=== PATIENT | female | born 1930 | race Caucasian/White ===

== ENCOUNTER 2019-06-17 11:25 | Inpatient (IN) | payer OTHER ==
[~2019-06-17] VITALS: Ht 167.6 cm; Wt 75.0 kg
[2019-06-17 11:29] VITALS: BP 137/75
[2019-06-17] MEDS ORDERED: IMDUR 30 MG TAB30 M1 PO (11:42)
[2019-06-17] MEDS ORDERED: CARVEDILOL12.5 MG PO (11:42)
[2019-06-17] MEDS ORDERED: KLOR-CON 1010 MEQ PO (11:42)
[2019-06-17] MEDS ORDERED: LIPITOR80 MG PO (11:43)
[2019-06-17] MEDS ORDERED: ANASTROZOLE1 MG PO (11:43)
[2019-06-17] MEDS ORDERED: ZANTAC 150MG T150 MG PO (11:43)
[2019-06-17] MEDS ORDERED: OXYBUTYNIN 5 MG5 M2 PO (11:43)
[2019-06-17] MEDS ORDERED: TRAZODONE HCL100 MG PO (11:44)
[2019-06-17] MEDS ORDERED: FLEXERIL PO (11:44)
[2019-06-17] MEDS ORDERED: OMEGA-3 FLAXS1000 MG PO (11:45)
[2019-06-17] MEDS ORDERED: GLUCOSAMINE CH1 EAC2 PO (11:45)
[2019-06-17] MEDS ORDERED: WOMEN'S 50 PLU1 EACH PO (11:45)
[2019-06-17] MEDS ORDERED: CLOPIDOGREL75 MG PO (11:46)
[2019-06-17 11:53] LABS: ABSOLUTE EOSINOPHILS 0.1 thou/uL (0.0-0.7); ABSOLUTE LYMPHOCYTES 0.7 thou/uL (0.8-5.3); ABSOLUTE MONOCYTES 0.6 thou/uL (0.0-1.2); ABSOLUTE NEUTROPHILS 4.4 thou/uL (1.6-8.1); BASOPHILS 0.4 %; EOSINOPHILS 1.3 %; HEMATOCRIT 30.7 % (37.0-47.0); HEMOGLOBIN 9.6 gm/dL (12.0-15.0); LYMPHOCYTES 11.8 %; MCH 24.1 pg (26.0-34.0); MCHC 31.3 g/dL (28.0-37.0); MONOCYTES 11.1 %; MPV 7.6 fl. (7.2-11.1); NUCLEATED RBCS 0 /100WBC; PLATELET COUNT* 262 thou/uL (150-400); POLYS 75.4 %; RBC 3.99 mil/uL (4.20-5.00); RDW-CV 18.2 % (10.5-14.5); WBC 5.8 thou/uL (4.0-11.0)
[2019-06-17 12:02] LABS: ANION GAP 11 mmol/L (7-16); BUN 21 mg/dL (7-18); CALCIUM 9.2 mg/dL (8.5-10.1); CHLORIDE 105 mmol/L (98-107); CO2 26 mmol/L (21-32); CREATININE 1.2 mg/dL (0.6-1.3); GLUCOSE 100 mg/dL (70-99); POTASSIUM 3.5 mmol/L (3.5-5.1); SODIUM 142 mmol/L (136-145)
[2019-06-17 12:08] LABS: APTT 27.3 Seconds (25.0-31.3); INR 1.2; PROTIME 11.9 Seconds (9.20-11.50)
[2019-06-17 12:13] LABS: ALBUMIN 3.7 g/dL (3.4-5.0); ALKALINE PHOSPHATASE 58 U/L (46-116); NT-PRO BRAIN NAT PEPTIDE 2047 pg/mL (<300); SGOT 17 U/L (15-37); SGPT 28 U/L (30-65); TOTAL BILIRUBIN 0.7 mg/dL (<0.1-1.0); TROPONIN-I LEVEL <0.06 ng/mL (<0.06)
--- NOTE | 2019-06-17 14:38 | NUR ---
SILVANA AMATO )NOTIFIED UPON PT RETURN. PT CONNECTED TO O2 AND MONITOR
[2019-06-17 16:00] VITALS: BP 138/67
[2019-06-17 16:01] VITALS: BP 122/59
[2019-06-17 16:49] LABS: % SATURATION 6 % (20-39); IRON 21 ug/dL (50-175)
--- NOTE | 2019-06-17 17:25 | NUR ---
PT ADMITTED TO TELEMETRY ROOM 233 WITH AN ADMITTING DIAGNOSIS OF SOA, CHEST PRESSURE. PT LORENA PAIN AT THSI TIME. VSS. V PACED ON MONITOR. PT ALERT AND ORIENTED AND ABLE TO VOICE ALL NEEDS. ASSESSMENT COMPLETED CHARTED. HOURLY ROUNDING, FALL PRECAUTIONS IN PLACE FOR PT SAFETY. CLWR.
--- NOTE | 2019-06-17 17:40 | 2DMMODE ---
[place] [address] 2 D/M-MODE ECHOCARDIOGRAM Name: KOLTON MONSIVAIS Room: [address] IN [facility]#: [id number] Admission: 06/17/19 Attend Phys: Tarik Lopez, Discharge: Date of : 11/30/30 Date of Service: 06/17/19 1740 Report #: [id number] THIS REPORT FOR: //name// APPROVED REPORT Study performed: 06/17/2019 14:47:22 EXAM: Comprehensive 2D, Doppler, and color-flow Echocardiogram Patient Location: In-Patient Room #: er Status: routine BSA: 1.90 HR: 70 bpm BP: 137/75 mmHg Rhythm: NSR Other Information Study Quality: Good Indications Dyspnea 2D Dimensions IVSd: 15.74 (7-11mm) LVOT Diam: 20.11 (18-24mm) LVDd: 44.57 mm PWd: 15.46 (7-11mm) Ascending Ao: 31.30 (22-36mm) LVDs: 28.27 (25-40mm) Aortic Root: 30.11 mm Volumes Left Atrial Volume (Systole) LA ESV Index: 46.00 mL/m2 Aortic Valve AoV Peak Suhas.: 2.08 m/s AO Peak Gr.: 17.27 mmHg LVOT Max P.83 mmHg AO Mean Gr.: 8.39 mmHg LVOT Mean P.22 mmHg LVOT Max V: 1.10 m/s AO V2 VTI: 36.70 cm LVOT Mean V: 0.67 m/s YOANA (VTI): 1.83 cm2 LVOT V1 VTI: 21.14 cm Mitral Valve E/A Ratio: 2.84 MV Decel. Time: 224.51 ms MV E Max Suhas.: 1.22 m/[place] [address] 2 D/M-MODE ECHOCARDIOGRAM Name: KOLTON MONSIVAIS Room: [address] IN ..#: [id number] Admission: 06/17/19 Attend Phys: Tarik Lopez, Discharge: Date of : 11/30/30 Date of Service: 06/17/19 1740 Report #: [id number] PHT: 65.11 ms MVA (PHT): 3.38 cm2 TDI E/Lateral E': 8.71 Lateral E' Suhas.: 0.14 m/s Pulmonary Valve PV Peak Suhas.: 0.84 m/s PV Peak Gr.: 2.80 mmHg Tricuspid Valve RAP Estimate: 5.00 mmHg TR Peak Gr.: 23.82 mmHg RVSP: 28.00 mmHg PA Pressure: 28.00 mmHg Left Ventricle The left ventricle is normal size. There is normal LV segmental wall motion. Moderate concentric left ventricular hypertrophy. Left ventricular systolic function is normal. The left ventricular ejection fraction is within the normal range. LVEF is 55-60%. The left ventricular diastolic function is normal. Right Ventricle The right ventricle is normal size. The right ventricular systolic function is normal. Pacemaker lead is present in the right ventricle. Atria Left atrium is moderately dilated. Right atrium is dilated. Aortic Valve Aortic valve leaflets are mildly thickened. Trace aortic regurgitation. Mild aortic stenosis. Mitral Valve The mitral valve is normal in structure. Mild mitral regurgitation. No evidence of mitral valve stenosis. Tricuspid Valve The tricuspid valve is normal in structure. Mild tricuspid regurgitation. estimated pa pressure 36 mm Hg Pulmonic Valve The pulmonary valve is normal in structure. Trace pulmonic regurgitation[place] [address] 2 D/M-MODE ECHOCARDIOGRAM Name: KOLTON MONSIVAIS Room: [address] IN [facility]#: [id number] Admission: 06/17/19 Attend Phys: Tarik Lopez, Discharge: Date of : 11/30/30 Date of Service: 06/17/19 1740 Report #: [id number] The aortic root is normal in size. IVC is normal in size and collapses >50% with inspiration. Pericardium There is no pericardial effusion. <Conclusion> Moderate concentric left ventricular hypertrophy. LVEF is 55-60%. Left atrium is moderately dilated. Mild aortic stenosis. Mild mitral regurgitation. Mild tricuspid regurgitation. estimated pa pressure 36 mm Hg <ELECTRONICALLY SIGNED> By: Rupesh Ba MD, [facility] 06/17/191739 39 39 Rupesh Ba MD, FAC /INF
[2019-06-17 20:19] VITALS: BP 106/54
[2019-06-18] VITALS: BP 114/63
[2019-06-18 04:00] VITALS: BP 108/55
[2019-06-18 05:24] LABS: CALCIUM 9.4 mg/dL (8.5-10.1); CREATININE 1.2 mg/dL (0.6-1.3); POTASSIUM 3.6 mmol/L (3.5-5.1)
--- NOTE | 2019-06-18 05:41 | NUR ---
PT IS ABLE TO COMMUNICATE HER NEEDS TO STAFF EFFECTIVELY. SHE HAS DENIED THE NEED FOR PAIN MEDICATION UP TO THIS TIME.
[2019-06-18 08:00] VITALS: BP 123/67
[2019-06-18 12:00] VITALS: BP 95/52
--- NOTE | 2019-06-18 15:41 | NUR ---
ASSUMED PT CARE AT 0800, AOX4, SBA, O2 SAT 90'S 2L NC. PT V PACED ON TELE MONITOR. PT HAVING SOB WITH ACTIVITY. HR GOES UP WITH EXERTION. EDEMA NOTED ON BILATERAL LOWER EXTREMITY. PT ON LASIX. VSS, AM ASSESSMENT CHARTED. MEDS GIVEN PER MAR. HOURLY ROUNDING. WILL CONTINUE TO MONITOR.
[2019-06-18 16:00] VITALS: BP 108/53
--- NOTE | 2019-06-18 16:22 | NUR ---
SW met with pt to complete initial assessment, introduce self, and SW role. Pt alert, oriented, pleasant, talkative. Pt lives at home with her son and dtr in law. Pt says pt has what pt needs at home already and has been able to perform ADLs and some IADLs but not as much since February and since chemo treatments. SW discussed AD information as there was a consult placed for AD and pt said she has AD/DPOA but just did not bring the copy to the hospital yet. Pt has hx of HH services and pt not sure if she will need HH at dc but said she would be open to HH at dc if recommended. Pt does not have oxygen at home and says that she feels better but still feels out of breath when walking. Pt has RW at home. GABRIEL/VINCENT to continue to follow to assist with safe dc planning.
[2019-06-18 20:20] VITALS: BP 107/55
[2019-06-19] VITALS: BP 109/56
[2019-06-19 04:00] VITALS: BP 103/52
[2019-06-19 05:17] LABS: ANION GAP 12 mmol/L (7-16); BUN 22 mg/dL (7-18); CALCIUM 9.2 mg/dL (8.5-10.1); CHLORIDE 104 mmol/L (98-107); CO2 27 mmol/L (21-32); CREATININE 1.2 mg/dL (0.6-1.3); GLUCOSE 96 mg/dL (70-99); MAGNESIUM 1.9 mg/dL (1.8-2.4); NT-PRO BRAIN NAT PEPTIDE 1361 pg/mL (<300); POTASSIUM 3.6 mmol/L (3.5-5.1); SODIUM 143 mmol/L (136-145); TROPONIN-I LEVEL <0.06 ng/mL (<0.06)
--- NOTE | 2019-06-19 06:28 | NUR ---
PT SLEPT MOST OF SHIFT. ASSESSMENT DOCUMENTED. MEDS GIVEN PER E-MAR. IV PATENT. NO REPORTS OF PAIN. PT UP SBA TO BATHROOM. TELE MONITOR READING PACED. WILL CONTINUE WITH PLAN OF CARE.
[2019-06-19 08:00] VITALS: BP 118/53
[2019-06-19 11:41] VITALS: BP 109/54
--- NOTE | 2019-06-19 12:22 | NUR ---
ASSUMED PT CARE AT 0800, AOX4, UP SBA, O2 SAT 90'S 1L NC. PT STATE SHE FEELS BETTER AND STRONGER. DENIES PAIN. SOB, HR GOES UP WITH ACTIVITY. EDEMA NOTED ON BILATERAL LOWER EXTREMITY, IMPROVING PER PT. PT ON LASIX. I&O, WEIGHT MONITOR. LAST BM 06/13/19, LAXATIVE GIVEN.PT FOR NM STESS TEST TOMORROW, NPO MIDNIGHT. AM ASSESSMENT CHARTED. MEDS GIVEN PER JAN. CALL LIGHT WITHIN REACH. WILL CONTINUE TO MONITOR.
[2019-06-19 16:30] VITALS: BP 116/60
[2019-06-19 19:25] VITALS: BP 114/60
[2019-06-20] VITALS: BP 122/66
[2019-06-20 04:00] VITALS: BP 116/62
[2019-06-20 05:28] LABS: CALCIUM 9.3 mg/dL (8.5-10.1); CREATININE 1.3 mg/dL (0.6-1.3)
--- NOTE | 2019-06-20 05:49 | NUR ---
PT SLEPT MOST OF SHIFT. ASSESSMENT DOCUMENTED. MEDS GIVEN PER -JAN. IV PATENT. NO REPORTS OF PAIN OR NAUSEA. PT REMAINED NPO AFTER MIDNIGHT. WILL CONTINUE WITH PLAN OF CARE.
[2019-06-20 08:00] VITALS: BP 110/82
[2019-06-20] MEDS ORDERED: B12INJ IM (10:01)
[2019-06-20] MEDS ORDERED: CARVEDILOL3.125 MG PO (10:01)
[2019-06-20] MEDS ORDERED: IRON325 PO (10:01)
[2019-06-20] MEDS ORDERED: LASIX 40 MG TAB40 M2 PO (10:01)
[2019-06-20] MEDS ORDERED: ELIQUIS5 MG PO (10:01)
--- NOTE | 2019-06-20 10:40 | NUR ---
Nutrition: Consult received. Pt confused about her conflicting diets. Pt stated that she had been on a low fiber diet since bowel surgery in March. She has had normal BMs since then, no bowel pain/discomfort, per pt. She has now been educated to start a heart healthy, which she is knowledgeable about, but knows it conflicts with a low fiber diet. Since she is s/p bowel surgeries x 2+months and having no S/S, advised her to follow the Heart Healthy diet, slowly adding some fiber back in. Pt voiced understanding. She is currently NPO for procedure today. RD available if further needs arise. Low risk.
--- NOTE | 2019-06-20 12:53 | CON ---
[address] [address] CONSULTATION Name: KOLTON MONSIVAIS Room: [address] IN .R.#: [id number] Admission: 06/17/19 Attend Phys: Tarik Lopez MD Discharge: Date of : 11/30/30 Report #: [id number] THIS REPORT FOR: //name// CC: Tarik Clay MD DATE OF SERVICE: 06/17/2019 CARDIOLOGY CONSULTATION HISTORY OF PRESENT ILLNESS: The patient is an 88-year-old single white female, who I was asked to see in the hospital today because of shortness of breath. The patient has an extensive past medical history. She apparently presented in 02/2018 with chest pain. She was taken to [facility] and told she had a heart attack. She had 5 coronary stents placed. She was noted to be bradycardic and prior to her discharge, she had a permanent [employer] pacemaker inserted. In March of this year, she underwent repeat colonoscopy after removal of previous colon cancer in 1991. She is found to have recurrent colon cancer and she then underwent resection in March of this year at [facility] in [place] [facility]. For about a week, she was in the hospital. She was discharged to rehabilitation. Apparently, developed an ileus and had to be readmitted. She was sent back to rehab and has now been home for about a month. She apparently has a history of a pulmonary nodule. Recently, she was sent by her primary care doctor to Radiology for a chest x-ray for followup of the lung nodule. She apparently was found to have small pleural effusions. She was referred to my nurse practitioner today. Her underlying rhythm is noted to be in atrial fibrillation. She was sent to the Emergency Room for further cardiac evaluation. The patient recently has been more short of breath; however, she denies any orthopnea or PND. She has had a lot of swelling of her ankles. She notes some leg pain. She has had no palpitations or syncope. She denied any bleeding problems. CURRENT MEDICATIONS: Include carvedilol twice a day, Imdur 30 mg a day, atorvastatin 80 mg a day. She was off her aspirin and Plavix for her colon surgery in March, but recently was started back on Plavix. She takes ranitidine, oxybutynin, and omeprazole. ALLERGIES: SHE HAS INTOLERANCE TO BACTRIM AND PENICILLIN. FAMILY HISTORY: Her son had coronary artery bypass surgery. SOCIAL HISTORY: She does have a son in [place], [place]. Uses a walker. Quit smoking years ago[place] [address] CONSULTATION Name: KOLTON MONSIVAIS Room: [address] IN ..#: [id number] Admission: 06/17/19 Attend Phys: Tarik Lopez MD Discharge: Date of : 11/30/30 Report #: [id number] REVIEW OF SYSTEMS: She has had no history of stroke. No history of asthma. She had breast cancer in the past, treated with lumpectomy and radiation therapy. She has had previous colon cancer, resected twice now. She has had a skin cancer removed. No chronic kidney disease. No liver disease. No chronic skin condition. PHYSICAL EXAMINATION: GENERAL: Elderly, frail-appearing female, lying in bed. She appeared in no acute distress. VITAL SIGNS: Showed a blood pressure of 130/70 and pulse is 70. HEENT: She is anicteric. Conjunctivae pink. Mucous members moist. NECK: Veins do not appear distended. CHEST: Reveal decreased breath sounds in the bases. CARDIAC: Regular rate and rhythm. No significant murmur. ABDOMEN: Soft. EXTREMITIES: Had pitting edema up to the knees. SKIN: Cool and dry. NEUROLOGIC: Nonfocal. ECG shows atrial fibrillation with a ventricular-paced rhythm. Her workup in the Emergency Room today; she had a venous duplex scan today that showed no evidence of DVT of the right lower extremity. Portable chest x-ray today showed cardiomegaly, pulmonary edema, and small effusions. Her lab work; sodium 142, potassium 3.5, creatinine 1.2. Troponin 0.06. BNP 2047. D-dimer 4.41. White blood cell count 5.8 and hemoglobin 9.6. IMPRESSION AND RECOMMENDATIONS: 1. Acute on chronic diastolic heart failure. Recommend IV Lasix. 2. Coronary artery disease, stents placed a year ago. I would continue Plavix. 3. Sick sinus syndrome. The patient is ventricular paced. 4. Atrial fibrillation. I would not recommend attempts at cardioversion. I would consider anticoagulation. 5. Recent removal of a colon cancer. 6. Previous history of breast cancer. 7. Anemia. The patient had a recent colon surgery. <ELECTRONICALLY SIGNED> By: Rupesh Ba MD, FACC 06/20/19 1253 1358 [id number] Ba MD, FAC /nt
--- NOTE | 2019-06-20 13:47 | NUR ---
THIS JEWELRY APPRAISER CALLED IN PRESCRIPTION FOR ELIQUIS, WRITTEN, TO PT[facility] IN [place] [phone]. COPAY FOR ELIQUIS IS $47/MONTH. GABRIEL MOLINA WILL INFORM PT.
--- NOTE | 2019-06-20 14:03 | NUR ---
cm informed pt of [employer] co-pay cost ($47) and provided her w/an Eliquis card for the first month.
[2019-06-20 15:05] VITALS: BP 126/64
--- NOTE | 2019-06-20 15:08 | NUR ---
pt informed effie she is current with [facility]. effie contacted [facility] inform of resumption of care. orders and med list faxed to [facility] @ [phone].
--- NOTE | 2019-06-20 16:48 | EKG ---
[place] [address] ELECTROCARDIOGRAM REPORT Name: KOLTON MONSIVAIS Room: [place] [address] ADM IN .R.#: [id number] Admission: 06/17/19 Attend Phys: Tarik Lopez MD Discharge: Date of : 11/30/30 Report #: [id number] THIS REPORT FOR: //name// [facility] ED Test Date: 2019-06-17 Test Time: 11:35:00 Pat Name: KOLTON MONSIVAIS Department: Room: [facility] Gender: F Executive Consultant: : 1930 Requested By: Griselda Michel Order Number: [id number] MD: Audi Lopez Measurements Intervals [place] Rate: 70 P: [place]: QRS: -78 QRSD: 151 T: 95 QT: 455 QTc: 491 Interpretive Statements Sinus rhythm with first degree AV block IVCD, consider atypical RBBB LVH with secondary repolarization abnormality Inferior infarct, age indeterminate, possible Anterolateral infarct, age indeterminate, possible No previous ECG available for comparison Electronically Signed On 06-20-2019 16:48:04 CDT by Audi Lopez [email or web address] <ELECTRONICALLY SIGNED> By: Audi Lopez MD, FACC 06/20/19 1648 1135 1135 Audi Lopez MD, [facility] /EPI
--- NOTE | 2019-06-20 16:49 | EKG ---
[place] [address] ELECTROCARDIOGRAM REPORT Name: KOLTON MONSIVAIS Room: [place] [address] ADM IN .R.#: [id number] Admission: 06/17/19 Attend Phys: Tarik Lopez MD Discharge: Date of : 11/30/30 Report #: [id number] THIS REPORT FOR: //name// [facility] ED Test Date: 2019-06-17 Test Time: 14:46:15 Pat Name: KOLTON MONSIVAIS Department: Room: [facility] Gender: F Accounting Instructor: : 1930 Requested By: Griselda Michel Order Number: [id number] MD: Audi Lopez Measurements Intervals [place] Rate: 70 P: 0 VT: 44 QRS: -81 QRSD: 147 T: 85 QT: 443 QTc: 479 Interpretive Statements Ventricular-paced complexes No further rhythm analysis attempted due to paced rhythm Right bundle branch block LVH with secondary repolarization abnormality Probable inferior infarct, acute Anterolateral infarct, age indeterminate Baseline wander in lead(s) V1 No previous ECG available for comparison Electronically Signed On 06-20-2019 16:49:12 CDT by Audi Lopez [email or web address] <ELECTRONICALLY SIGNED> By: Audi Lopez MD, FACC 06/20/19 1649 1446 1446 Audi Lopez MD, FAC /EPI
--- NOTE | 2019-06-20 18:03 | CARDNUC ---
[place] [address] CARDIAC NUCLEAR IMAGING REPORT Name: KOLTON MONSIVAIS Room: [facility] IN [facility]#: [id number] Admission: 06/17/19 Attend Phys: Tarik Lopez, Discharge: Date of : 11/30/30 Date of Service: 06/20/19 1803 Report #: [id number] THIS REPORT FOR: //name// APPROVED REPORT Imaging Protocol: Rest Tc-99m/Stress Tc-99m 1 day Study performed: 06/18/2019 09:26:00 Indication: Dyspnea Patient Location: In-Patient Room #: 233 Stress Tech: Alisha Valdez Stress Nurse: Ivonne Harding RN NM Tech:ARIANA Ervin Ht: 5 ft 6 in Wt: 173 lbs BSA: 1.88 m2 BMI: 27.91 Medical History Medical History: SOB, Atrial Fibrillation, CAD s/p [place], CAD s/p stent, Cardiomyopathy, Carotid artery disease, CHF, CKD, Fatigue, Former Smoker, Heart failure, HTN, Hyperlipidemia, ICD, RBBB, SOB, Weakness, SSS with PM. Medications: Carvedilol, Imdur, K-Dur, Lasix, Eliquis, Atorvastatin, Plavix. Allergies: Penicillins, Prochlorperazine, Sulfa meds, Trimethoprim, Cimetidine. Cardiac Risk Factors: Age, FHX of CAD, HTN, Hyperlipidemia, SOB, Past Smoker, Carotid Artery Disease, SSS with PM, RBBB. Previous Cardiac Procedures: ICD, PCI, Myocardial infarction, Afib. Pretest Chest Pain Characteristics: No chest pain Exercise History: Sedentary Physical Disabilities: Weakness, Fatigue, SOA, Unstable / Unstable gait. Meds Held (24 hrs): Carvedilol, Imdur. Resting Data Rest SPECT myocardial perfusion imaging was performed in supine position 30 minutes following the intravenous injection of 10.5 mCi of Tc-99m Sestamibi. Time of rest injection: 1020 Date: 06/20/2019 The images were gated to evaluate regional wall motion and calculate left ventricular ejection fraction. Administration Route: [place] [address] CARDIAC NUCLEAR IMAGING REPORT Name: KOLTON MONSIVAIS Room: [address] IN [facility]#: [id number] Admission: 06/17/19 Attend Phys: Tarik Lopez, Discharge: Date of : 11/30/30 Date of Service: 06/20/19 1803 Report #: [id number] Administration Site: Right Arm Pharmacologic Stress Pharmacologic stress test was performed by injecting Regadenoson 0.4 mg IV push over 10-15 seconds immediately followed by the intravenous injection of 34.2 mCi of Tc-99m Sestamibi. Time of stress injection: 1205 Date: 06/20/2019 Administration Route: IV Administration Site: Right Arm Gated Stress SPECT was performed 40 minutes after stress injection. The images were gated to evaluate regional wall motion and calculate left ventricular ejection fraction. Prone imaging was performed. Stress Test Details Stress Test: Pharmacologic stress testing performed using 0.4 mg of regadenoson per 5 mL given IV over 10 seconds. Reason for pharmacologic stress test: Unstable gait/unsteady, weak, SOA.. HR Max Heart Rate (APMHR): 132 bpm Resting HR: 78 bpm Target HR (85% APMHR): 112 bpm Max HR Achieved: 108 bpm % of APMHR: 81 Recovery HR: 86 bpm BP Resting BP: 141/81 mmHg Max BP: 126/59 mmHg Recovery BP: 122/59 mmHg ECG Resting ECG: Ventricular paced rhythm Stress ECG: Ventricular paced rhythm ST Change: None Arrhythmia: None Recovery ECG: Ventricular paced rhythm Recovery ST Change: None Recovery Arrhythmia: None Clinical Reason for Termination: Completed protocol Stress Symptoms: SOA Exercise duration: 00 min 00 sec Exercise capacity: 1.00 METs The patient tolerated Lexiscan infusion [place] [address] CARDIAC NUCLEAR IMAGING REPORT Name: KOLTON MONSIVAIS Room: [address] IN [facility]#: [id number] Admission: 06/17/19 Attend Phys: Tarik Lopez, Discharge: Date of : 11/30/30 Date of Service: 06/20/19 1803 Report #: [id number] symptoms. Nurse Comments 88 year old female inpatient presented with recent HX of increased SOA, fatigue. Patient tolerated Lexiscan in supine position r/t fatigue and tremors. Recovery unremarkable with PO caffeine, effective. Patient was escorted via wheelchair by staff to Nuclear Medicine for images. Patient was stable with no complaints at that time. Stress ECG Conclusion The baseline EKG shows ventricular paced rhythm. EKGs obtained during and post Lexiscan infusion showed ventricular paced rhythm. There were no stress-induced arrhythmias. Study Quality Study: Good Artifact: No artifact Study Data At rest, the left ventricular ejection fraction was 56%.. Post stress, the left ventricular ejection was 55%.. TID = 1.08. Perfusion Normal left ventricular perfusion. Wall Motion There is a septal wall motion abnormality noted possibly due to paced rhythm. Global LV systolic function is well-preserved. Nuclear Conclusion ECG Findings: non-diagnostic Clinical Findings: negative for ischemia Nuclear Findings: negative for ischemia Exercise Capacity: not assessed Left Ventricular Function: normal Risk Study: low Myocardial perfusion images show no defect to suggest infarct or ischemia. Gated study showed preserved left ventricular systolic function. This is a low risk study. <Conclusion> The baseline EKG shows ventricular paced rhythm[place] [address] CARDIAC NUCLEAR IMAGING REPORT Name: KOLTON MONSIVAIS Room: [address] IN [facility]#: [id number] Admission: 06/17/19 Attend Phys: Tarik Lopez, Discharge: Date of : 11/30/30 Date of Service: 06/20/19 1803 Report #: [id number] and post Lexiscan infusion showed ventricular paced rhythm. There were no stress-induced arrhythmias. <ELECTRONICALLY SIGNED> By: Audi Lopez MD, EDWIGE 06/20/19 1803 02 180 Audi Lopez MD, FACRian /INF
--- NOTE | 2019-06-20 18:19 | NUR ---
PT UP IN ROOM WITH SB ASSIST. REPORTS IMPROVEMENT OF BREATHING. DENIES CP. TOLERATING PO WELL. STRESS TEST THIS AFTERNOON-PENDING RESULTS
--- NOTE | 2019-06-20 18:22 | NUR ---
PLAN TO DC IF STRESS TEST NEGATIVE. AWAITING STRESS TEST RESULTS. SPOKE TO SON JUANIS WHO STATES HE IS UNABLE TO PICK PT UP UNTIL AFTER EH GETS OFF WORK AT 2200. PT STATES SHE WOULD LIKE TO STAY UNTIL THE AM BECAUSE SHE IS TIRED
[2019-06-20 20:45] VITALS: BP 102/50
[2019-06-21] VITALS: BP 117/57
[2019-06-21 04:00] VITALS: BP 115/67
--- NOTE | 2019-06-21 05:51 | NUR ---
PT ALERT AND ORIENTED. VSS ON RA. ASSESSMENT DOCUMENTED. MEDS GIVEN PER EMAR. STRICT I&O. PT DID NOT HAVE URINE OUTPUT THIS SHIFT. PT ONLY HAD ABOUT 10ML SIP OF WATER WITH MEDS. PT MOST OF SHIFT. CALL LIGHT WITHIN REACH. HOURLY ROUNDINGS MADE. POSSIBLE DC TODAY. WILL CONTINUE PLAN OF CARE.
[2019-06-21 08:00] VITALS: BP 123/58
[2019-06-21 09:05] VITALS: BP 123/58
--- NOTE | 2019-06-21 10:14 | NUR ---
ASSUMED PT CARE AT 0800, AOX4, SBA, O2 SAT 90'S RA. TRACING V PACED ON TELE. DENIES PAIN. EDEMA NOTED ON BILATERAL LOWER EXTREMITY. WAITING FOR STRESS TEST RESULT. LAST BM 06/21/19. VSS, AM ASSESSMENT CHARTED. MEDS GIVEN PER MAR. HOURLY ROUNDING. WILL CONTINUE TO MONITOR.
--- NOTE | 2019-06-21 12:05 | NUR ---
DISCHARGED PACKET DISCUSSED WITH PT AND SON. MEDICATION PACKET/SCRIPT GIVEN. IV, TELE REMOVED. REMINDED TO FOLLOW UP WITH CARDIOLOGY, PCP. ADVISED TO WEIGHT DAILY, LOW SALT DIET. LEFT UNIT VIA [employer] AT 1200.
== END 2019-06-21 12:32 | disposition home health service (06) | DRG 308 ==
LOC: M.ERS 11:25 → M.TBA-ER 14:17 → M.2W 14:17
PROVIDERS: Internal Medicine; Internal Medicine Cardiovascular Disease; Personal Emergency Response Attendant; ADMIT Internal Medicine
DX: I49.5 Sick sinus syndrome (principal); I50.33 Acute on chronic diastolic (congestive) heart failure; D68.69 Other thrombophilia; Z96.653 Presence of artificial knee joint, bilateral; I44.7 Left bundle-branch block, unspecified; D64.9 Anemia, unspecified; D50.9 Iron deficiency anemia, unspecified; E53.8 Deficiency of other specified B group vitamins; D63.8 Anemia in other chronic diseases classified elsewhere; N18.3 Chronic kidney disease, stage 3 (moderate); I27.20 Pulmonary hypertension, unspecified; I25.10 Atherosclerotic heart disease of native coronary artery without angina pectoris; I48.91 Unspecified atrial fibrillation; Z79.01 Long term (current) use of anticoagulants; Z95.5 Presence of coronary angioplasty implant and graft; Z90.710 Acquired absence of both cervix and uterus; Z90.49 Acquired absence of other specified parts of digestive tract; I25.2 Old myocardial infarction; Z88.0 Allergy status to penicillin; Z88.1 Allergy status to other antibiotic agents; Z88.8 Allergy status to other drugs, medicaments and biological substances; Z85.3 Personal history of malignant neoplasm of breast; Z85.038 Personal history of other malignant neoplasm of large intestine; Z87.891 Personal history of nicotine dependence; Z95.0 Presence of cardiac pacemaker